=== PATIENT | male | born 1965 | race African-American/Black ===

== ENCOUNTER 2018-06-18 07:14 | Emergency (ER) | payer MEDICAID, OTHER ==
[~2018-06-18] VITALS: Ht 185.4 cm; Wt 105.0 kg
--- NOTE | 2018-06-18 08:24 | NUR ---
PT MOVED TO ROOM
--- NOTE | 2018-06-18 08:24 | NUR ---
PT TO ROOM FROM LOBBY
--- NOTE | 2018-06-18 08:28 | NUR ---
FIRST CONTACT WITH PT. 53 Y/O MALE PRESENTS TO ED WITH C/O CONSTIPATION. PER PT "I THINK I'M CONSTIPATED. SOMETIMES I FEEL MY HEART IS FLUTTERING." NO C/O CP, SOB, N/V/D, TRAUMA, SYNCOPE. PT GIVEN GOWN TO CHANGE INTO. PT ALSO ASKED TO GIVE A UA SAMPLE. PT STATES "I JUST WENT TO THE BATHROOM." WILL CONTINUE TO MONITOR.
--- NOTE | 2018-06-18 08:39 | NUR ---
PT PLACED ON CONT PULSE OX,NIBP, AUDIO VISUAL AIDE. NO ACUTE DISTRESS NOTED. NO NEEDS REQUESTED AT THIS TIME.
--- NOTE | 2018-06-18 09:08 | NUR ---
Jerald fitzgerald in [facility] - 06/18/18 at 0909 by JOHN Report from RN. [place] Awaiting for sue bhatti.
--- NOTE | 2018-06-18 09:09 | NUR ---
Pt up to edge of bed to give urine sample.
[2018-06-18 09:20] LABS: BASOPHILS # (AUTO) 0.02 x10^3/uL (0-0.1); BASOPHILS % (AUTO) 0 % (0-1); EOSINOPHILS # (AUTO) 0.25 x10^3/uL (0-0.4); EOSINOPHILS % (AUTO) 3 % (1-7); LYMPHOCYTES % (AUTO) 45 % (22-44); MD NO; MEAN CORPUSCULAR HEMOGLOBIN 29.8 pg (27.5-34.5); MEAN CORPUSCULAR VOLUME 90.5 fL (81-97); MEAN PLATELET VOLUME 8.5 fL (7.4-10.4); MONOCYTES % (AUTO) 10 % (2-9); NEUTROPHILS # (AUTO) 3.26 x10^3/uL (1.8-6.8); NEUTROPHILS % (AUTO) 41 % (42-75); PLATELET COUNT 265 x10^3/uL (130-400); RED BLOOD COUNT 4.86 x10^6/uL (4.38-5.82); RED CELL DISTRIBUTION WIDTH 14.5 % (9.4-14.8)
[2018-06-18 09:28] LABS: MICROSCOPIC AUTO
[2018-06-18 09:31] LABS: CALCIUM 8.6 mg/dL (8.5-10.1); CHLORIDE 103 mmol/L (98-107)
[2018-06-18 09:33] LABS: CULTURE INDICATED? YES
[2018-06-18 09:35] LABS: ALANINE AMINOTRANSFERASE 44 U/L (12-78); ALBUMIN 3.2 g/dL (3.4-5.0); ANION GAP 6 mmol/L (5-15); CREATININE 0.96 mg/dL (0.7-1.3)
[2018-06-18 09:39] LABS: ALKALINE PHOSPHATASE 80 U/L (45-117); BILIRUBIN,TOTAL 0.6 mg/dL (0.2-1.0); TOTAL PROTEIN 7.3 g/dL (6.4-8.2); TROPONIN I < 0.015 ng/mL (0.000-0.045)
--- NOTE | 2018-06-18 10:00 | NUR ---
POC UPDATED WITH PT. PT STATES HE WANTS TO HIM THE ENEMMA HIMSELF.
--- NOTE | 2018-06-18 10:31 | NUR ---
PT EDUCATED ON USE OF FLEETS. CL WITHIN REACH. BC NEXT TO BARON.
[2018-06-18 11:15] VITALS: BP 139/68
--- NOTE | 2018-06-18 11:17 | NUR ---
FLESTEFFANIE ATTEMPTED A SECOND TIME. NO SUCCESS AT THIS TIME. ERMD AWARE.
--- NOTE | 2018-06-18 11:30 | NUR ---
PT UPDATED ON POC. AWAITING RECHECK BY EMILIANO.
--- NOTE | 2018-06-18 12:00 | NUR ---
PT NOT IN ROOM AT THIS TIME. YAO DRAPER. ASSUMED PT HAS LEFT AT THIS TIME. WILL CONTINUE TO SEE IF PT RETURNS.
== END 2018-06-18 12:26 | disposition home or self-care (01) ==
LOC: ED 10:01
DX: K59.00 Constipation, unspecified (principal); R11.2 Nausea with vomiting, unspecified
CPT/HCPCS: 36415; 74022; 80053; 81001; 84484; 85025; 87086; 93005; 99284